=== PATIENT | male | born 1995 | race African-American/Black ===

== ENCOUNTER 2016-02-17 18:05 | Emergency (ER) | payer OTHER ==
[~2016-02-17] VITALS: Ht 195.6 cm; Wt 108.9 kg
[2016-02-17 18:06] VITALS: BP 127/82
[2016-02-17] MEDS ORDERED: TESSALON PERLE100 MG PO (18:25)
[2016-02-17] MEDS ORDERED: IBUPROFEN 600600 M1 PO (18:25)
== END 2016-02-17 18:53 | disposition home or self-care (01) ==
LOC: ER 18:05
DX: J06.9 Acute upper respiratory infection, unspecified (principal); Z91.018 Allergy to other foods

== ENCOUNTER 2017-02-25 14:01 | Emergency (ER) | payer OTHER ==
[~2017-02-25] VITALS: Ht 195.6 cm; Wt 108.9 kg
[~2017-02-25 14:01] MED LIST: IBUPROFEN 600600 M1 PO; TESSALON PERLE100 MG PO
[2017-02-25 15:09] LABS: HEMATOCRIT 42.5 % (42.0-52.0); HEMOGLOBIN 14.3 gm/dL (14.0-18.0); MCH 27.3 pg (26.0-34.0); MCHC 33.6 g/dL (28.0-37.0); MCV 81.3 fL (80.0-100.0); PLATELET COUNT 183 thou/uL (150-400); RBC 5.22 mil/uL (4.50-6.00); RDW 14.5 % (10.5-14.5); WBC 4.4 thou/uL (4.0-11.0)
[2017-02-25 15:16] LABS: MAGNESIUM 1.9 mg/dL (1.8-2.4)
[2017-02-25] MEDS ORDERED: ONDANSETRON HCL4 M2 PO (15:22)
[2017-02-25] MEDS ORDERED: IBUPROFEN 600600 M1 PO (15:22)
[2017-02-25 15:36] LABS: ABSOLUTE NEUTROPHILS 1.8 thou/uL (1.4-8.2)
== END 2017-02-25 15:44 | disposition home or self-care (01) ==
LOC: ER 14:01
PROVIDERS: Nurse Practitioner
DX: R51 Headache (principal)

== ENCOUNTER 2017-02-27 14:12 | Emergency (ER) | payer BC ==
[~2017-02-27] VITALS: Ht 195.6 cm; Wt 106.6 kg
[~2017-02-27 14:12] MED LIST changes: +ONDANSETRON HCL4 M2 PO
[2017-02-27] MEDS ORDERED: NAPROSYN500 MG PO (15:39)
[2017-02-27] MEDS ORDERED: NORFLEX100 MG PO (15:39)
== END 2017-02-27 16:20 | disposition home or self-care (01) ==
LOC: ER 14:12
DX: G44.209 Tension-type headache, unspecified, not intractable (principal); Z91.02 Food additives allergy status